=== PATIENT | male | born 1990 | race Hispanic/Latino ===

== ENCOUNTER 2016-04-19 09:30 | Emergency (ER) | payer OTHER, SELFPAY ==
--- NOTE | 2016-04-19 12:18 | EDDOCDS ---
Physician Documentation [facility] Name: Andreas Cifuentes Age: 25 yrs Sex: Male : 1990 Arrival Date: 04/19/2016 Time: 09:30 Bed BHU1 Private MD: [facility] - Pediatric[facility] Disposition: 04/19 11:28 Critical Care: Critical care not applicable. pc Disposition: 04/19/16 11:31 Discharged to Home/Self Care. Impression: Generalized anxiety disorder. - Condition is Stable. - Discharge Instructions: Generalized Anxiety Disorder. - Medication Reconciliation, Local Pharmacy Hours form. - Follow up: Referral list, As provided by PFS; When: Call to arrange an appointment; Reason: To establish care. - Problem is chronic. - Symptoms are unchanged. HPI: 11:28 This 25 yrs old Male presents to ER via Walkin/Carried/Asstd with complaints pc of Anxiety. 11:28 The history is obtained from the patient. He complains of increased anxiety. He denies pc depression, SI or HI. He is asking to talk to a counsellor. At their worst, the symptoms were mild. In the emergency department, the symptoms are unchanged. The patient has experienced similar episodes in the past, chronically. Historical: - Allergies: no known allergies; - Home Meds: 1. Lexapro 20 mg Oral tab once daily (Last dose: 04/19/2016 08:00) - PMHx: Anxiety; Depression; - PSHx: none; - The history from nurses notes was reviewed: and I agree with what is documented. - Social history: Smoking status: Patient uses tobacco products, heavy tobacco smoker. No barriers to communication noted, The patient speaks fluent Filipino. - : The pt / caregiver states he / she is not on anticoagulants. Home medication list is obtained from the patient. - Hospitalizations: : No recent hospitalization is reported. - Exposure Risk Screening:: None identified. - Immunization history:: All immunizations up-to-date. - Family history: Not pertinent. ROS: 11:28 All systems are negative except as listed. pc Exam: 11:28 General Appearance: no acute distress, alert. pc 11:28 EENT: normal eye inspection, ears, nose and throat normal, pharynx normal, mucous membranes moist 11:28 Neck: The exam reveals no acute abnormalities. ROM is normal and painless. No nuchal rigidity is noted.. 11:28 Respiratory: no respiratory distress, normal breath sounds. 11:28 CVS: regular pulse rate, regular rhythm, normal S1 and S2, no murmurs, strong peripheral pulses. 11:28 Abdomen: soft, non-tender, no organomegaly, normal bowel sounds. 11:28 Back: normal inspection. 11:28 Skin: skin color is normal, warm, dry. 11:28 Extremities: The extremities have a grossly normal appearance, are non-tender, without acute ROM abnormalities. 11:28 Neuro: oriented x 3, cranial nerves normal as tested, no motor deficits, no sensory deficits. 11:28 Psych: normal mood. Vital Signs: 09:32 BP 144 / 82; Pulse 94; Resp 16; Temp 97.3(O); Pulse Ox 100% ; Weight 58.97 kg / 130.01 cmb lbs; Height 5 ft. 1 in. (154.94 cm); Pain 0/10; 09:32 Body Mass Index 24.56 (58.97 kg, 154.94 cm) cmb MDM: 11:26 REGULAR DIET PLASTIC LOPEZ+DIET ordered. EDMS 11:28 Differential Diagnosis: anxiety. Plan: PFS eval. Data reviewed: old medical records, pc vital signs, nurses notes. Test interpretation: none. The patient has been re-examined and re-evaluated. The patient's symptoms have mildly improved after treatment. Other consultation: The ED can worker was notified and will evaluate the patient. 11:28 Disposition: The historical points, examination findings, and any diagnostic results pc supporting the provided diagnosis, were discussed with the patient or legal guardian. The need for outpatient follow up with the provider listed on their discharge instructions was discussed. They were encouraged to return to [facility], or the nearest ED, if symptoms worsen/persist, or for any other questions/concerns. 11:31 PSA Outpatient Referrals was scanned into [employer] and attached to record. rita 11:47 Financial registration complete. lg Signatures: Dispatcher [employer] EDMS Serafin Aguiar MD MD pc Sobkiewicz, Michele,ERIKA RN ms2 Osman Bernardo, PSA PSA Eddie Mc, Reg Reg lg Caitie Cramen RN RN mk4 MTDD
--- NOTE | 2016-04-19 12:18 | EDDOCDS ---
Nurse's Notes [facility] Name: Andreas Cifuentes Age: 25 yrs Sex: Male : 1990 Arrival Date: 04/19/2016 Time: 09:30 Bed [facility] Private MD: [facility] - Pediatrics Diagnosis: Generalized anxiety disorder Presentation: 04/19 09:30 Red Flag criteria, patient assessed and taken directly to a bed. 4 09:38 Presenting complaint: Patient states: pt trying to get off drugs was at [facility] this mk4 morning last week he "thought" about killing himself no plan. Mental Health Triage Level: Level 2:. Adult Sepsis Screening: The patient does not have new or worsening altered mentation. Patient's respiratory rate is less than 22. Systolic blood pressure is greater than 100. Patient has a qSOFA score of 0- Negative Sepsis Screen. Mental Health Triage Level: Level 2:. Suicide/Homicide risk assessment- The patient admits to and/or has been reported to be having suicidal ideations. Status: Patient is not a relocation services specialist or dependent. Transition of care: patient was not received from another setting of care. 09:38 Acuity: VINNY Level 3 mk4 09:38 Method Of Arrival: Walkin/Carried/Asstd mk4 Triage Assessment: 09:40 General: Appears in no apparent distress, Behavior is anxious. Pain: Denies pain. HIV mk4 screening NA for this visit Offered previously. Historical: - Allergies: no known allergies; - Home Meds: 1. Lexapro 20 mg Oral tab once daily (Last dose: 04/19/2016 08:00) - PMHx: Anxiety; Depression; - PSHx: none; - The history from nurses notes was reviewed: and I agree with what is documented. - Social history: Smoking status: Patient uses tobacco products, heavy tobacco smoker. No barriers to communication noted, The patient speaks fluent Guinean. - : The pt / caregiver states he / she is not on anticoagulants. Home medication list is obtained from the patient. - Hospitalizations: : No recent hospitalization is reported. - Exposure Risk Screening:: None identified. - Immunization history:: All immunizations up-to-date. - Family history: Not pertinent. Screenin:10 Screening information is obtained from prior medical records. Fall risk: No risks ms2 identified. Assistance ADL's: requires no assistance with activities of daily living. Abuse/DV Screen: The patient / caregiver reports he/she is: not in a situation that causes fear, pain or injury. Nutritional screening: No deficits noted. Advance Directives: Currently, there is no health care proxy. There is no active DNR order. There is no living will. There is no Power of Transition Manager. Advance directive information has not previously been placed in an [facility] medical record. Further advance directive information is declined. home support is adequate. Assessment: 12:11 General: Appears in no apparent distress, first contact with pt ---pt ready for d/c. ms2 Behavior is cooperative. Neurological: Level of Consciousness is awake, alert, obeys commands. Respiratory: Airway is patent Respiratory effort is even, unlabored, Respiratory pattern is regular, symmetrical. Derm: Skin is pink, warm & dry. Musculoskeletal: Range of motion intact in all extremities. Social Work Consult: 11:31 Social Work Note: Presented to ED looking for referrals. Pt denied SI/HI, is A&Ox3, rb calm and cooperative, uses Marijuana everyday since age 13, and recently broke up with BF (still living in the home). Pt on Lexapro (Prescribed by PCP \\T\\ [facility]) but feels it is not strong enough according to Pt. Has an apt on 05/01/16 with PCP and will discuss medication change at that time. Additional referrals given. No further interventions needed at this time. Vital Signs: 09:32 BP 144 / 82; Pulse 94; Resp 16; Temp 97.3(O); Pulse Ox 100% ; Weight 58.97 kg; Height 5 cmb ft. 1 in. (154.94 cm); Pain 0/10; 09:32 Body Mass Index 24.56 (58.97 kg, 154.94 cm) b Vitals: 09:32 Log In Time: April 19, 2016 at 09:30. b ED Course: 09:31 Patient visited by Bailey Su. cmb 09:[facility] is Private Physician. cmb 09:33 RN notified that patient meets Red Flag criteria. cmb 09:38 Patient moved to mk4 09:39 Triage Initiated mk4 09:41 Patient moved to BHU1 mk4 09:45 Patient visited by James Glass. dpm 09:50 Pt greeted and oriented to ED. Patient advised of names of staff involved in care, dpm location of call carey, wait times and NPO status. Patient has correct armband on for positive identification. Placed in psych safe attire. Security observing. Property removed, inventory done, secured in belongings bag- placed in locked locker. Placed in locker 1. Psych Safety Check: Location: Psych Room. Visual Assessment: Cooperative. 10:02 Patient visited by Jamse Glass. dpm 10:22 Patient visited by James Glass. dpm 10:46 Patient visited by James Glass. dpm 10:59 Serafin Aguiar MD is Attending Physician. pc 11:01 Patient visited by James Glass. dpm 11:16 Patient visited by James Glass. dpm 11:25 Patient visited by Serafin Aguiar MD. pc 11:31 Referral list, As provided by [facility] is Referral Physician. pc 11:31 PSA Outpatient Referrals was scanned into [employer] and attached to record. jl 11:48 Patient visited by James Glass. dpm 12:10 Patient visited by Ayaan Hoskins,ERIKA. ms2 12:13 The patient / caregiver is instructed regarding the plan of care and ED course. ms2 12:13 No IV's were initiated during this patient's visit. No procedures done that require ms2 assistance. Order Results: There are currently no results for this order. Outcome: 11:31 Discharge ordered by Provider. pc 12:14 Discharge Assessment: patient administered narcotics - no. The following High Risk ms2 Discharge criteria are identified: None. Discharged to home ambulatory, with friend. Condition: stable. Discharge instructions given to patient, Instructed on discharge instructions, follow up and referral plans. Demonstrated understanding of instructions, Pt was receptive of discharge instructions/ teaching. No special radiology studies were completed. 12:16 Patient left the ED. ms2 Signatures: Serafin Aguiar MD MD pc Sobkiewicz, Michele,ERIKA RN ms2 Robbins, Daisha, PSA PSA rb Tova, Osman, PSA PSA jl James Glass dpm Bailey Su Margaret, RN RN mk4 MTDD
--- NOTE | 2016-04-21 13:18 | EDDOCDS ---
Physician Documentation [facility] Name: Andreas Cifuentes Age: 25 yrs Sex: Male : 1990 Arrival Date: 04/19/2016 Time: 09:30 Bed BHU1 Private MD: [facility] - Pediatric[facility] Disposition: 04/19 11:28 Critical Care: Critical care not applicable. pc Disposition: 04/19/16 11:31 Discharged to Home/Self Care. Impression: Generalized anxiety disorder. - Condition is Stable. - Discharge Instructions: Generalized Anxiety Disorder. - Medication Reconciliation, Local Pharmacy Hours form. - Follow up: Referral list, As provided by PFS; When: Call to arrange an appointment; Reason: To establish care. - Problem is chronic. - Symptoms are unchanged. HPI: 11:28 This 25 yrs old Male presents to ER via Walkin/Carried/Asstd with complaints pc of Anxiety. 11:28 The history is obtained from the patient. He complains of increased anxiety. He denies pc depression, SI or HI. He is asking to talk to a counsellor. At their worst, the symptoms were mild. In the emergency department, the symptoms are unchanged. The patient has experienced similar episodes in the past, chronically. Historical: - Allergies: no known allergies; - Home Meds: 1. Lexapro 20 mg Oral tab once daily (Last dose: 04/19/2016 08:00) - PMHx: Anxiety; Depression; - PSHx: none; - The history from nurses notes was reviewed: and I agree with what is documented. - Social history: Smoking status: Patient uses tobacco products, heavy tobacco smoker. No barriers to communication noted, The patient speaks fluent Azerbaijani. - : The pt / caregiver states he / she is not on anticoagulants. Home medication list is obtained from the patient. - Hospitalizations: : No recent hospitalization is reported. - Exposure Risk Screening:: None identified. - Immunization history:: All immunizations up-to-date. - Family history: Not pertinent. ROS: 11:28 All systems are negative except as listed. pc Exam: 11:28 General Appearance: no acute distress, alert. pc 11:28 EENT: normal eye inspection, ears, nose and throat normal, pharynx normal, mucous membranes moist 11:28 Neck: The exam reveals no acute abnormalities. ROM is normal and painless. No nuchal rigidity is noted.. 11:28 Respiratory: no respiratory distress, normal breath sounds. 11:28 CVS: regular pulse rate, regular rhythm, normal S1 and S2, no murmurs, strong peripheral pulses. 11:28 Abdomen: soft, non-tender, no organomegaly, normal bowel sounds. 11:28 Back: normal inspection. 11:28 Skin: skin color is normal, warm, dry. 11:28 Extremities: The extremities have a grossly normal appearance, are non-tender, without acute ROM abnormalities. 11:28 Neuro: oriented x 3, cranial nerves normal as tested, no motor deficits, no sensory deficits. 11:28 Psych: normal mood. Vital Signs: 09:32 BP 144 / 82; Pulse 94; Resp 16; Temp 97.3(O); Pulse Ox 100% ; Weight 58.97 kg / 130.01 cmb lbs; Height 5 ft. 1 in. (154.94 cm); Pain 0/10; 09:32 Body Mass Index 24.56 (58.97 kg, 154.94 cm) cmb MDM: 11:26 REGULAR DIET PLASTIC LOPEZ+DIET ordered. EDMS 11:28 Differential Diagnosis: anxiety. Plan: PFS eval. Data reviewed: old medical records, pc vital signs, nurses notes. Test interpretation: none. The patient has been re-examined and re-evaluated. The patient's symptoms have mildly improved after treatment. Other consultation: The ED hatchery worker was notified and will evaluate the patient. 11:28 Disposition: The historical points, examination findings, and any diagnostic results pc supporting the provided diagnosis, were discussed with the patient or legal guardian. The need for outpatient follow up with the provider listed on their discharge instructions was discussed. They were encouraged to return to [facility], or the nearest ED, if symptoms worsen/persist, or for any other questions/concerns. 11:31 PSA Outpatient Referrals was scanned into [employer] and attached to record. jl 11:47 Financial registration complete. lg 12:41 [facility] Payment Agreement was scanned into [employer] and attached to record. lg Signatures: Dispatcher [employer] EDMS Serafin Aguiar MD MD pc Sobkiewicz, Michele, RN RN ms2 Osman Bernardo, PSA PSA jl Eddie Mc, Barron Reg lg Caitie Carmen RN RN mk4 The chart was reviewed and I authenticate all verbal orders and agree with the evaluation and treatment provided.Attachments: 12:41 [facility] Payment Agreement lg Chart Complete MTDD
--- NOTE | 2016-04-21 13:18 | EDDOCDS ---
Physician Documentation [facility] Name: Andreas Cifuentes Age: 25 yrs Sex: Male : 1990 Arrival Date: 04/19/2016 Time: 09:30 Bed BHU1 Private MD: [facility] - Pediatrics Disposition: 04/19 11:28 Critical Care: Critical care not applicable. pc Disposition: 04/19/16 11:31 Discharged to Home/Self Care. Impression: Generalized anxiety disorder. - Condition is Stable. - Discharge Instructions: Generalized Anxiety Disorder. - Medication Reconciliation, Local Pharmacy Hours form. - Follow up: Referral list, As provided by PFS; When: Call to arrange an appointment; Reason: To establish care. - Problem is chronic. - Symptoms are unchanged. HPI: 11:28 This 25 yrs old Male presents to ER via Walkin/Carried/Asstd with complaints pc of Anxiety. 11:28 The history is obtained from the patient. He complains of increased anxiety. He denies pc depression, SI or HI. He is asking to talk to a counsellor. At their worst, the symptoms were mild. In the emergency department, the symptoms are unchanged. The patient has experienced similar episodes in the past, chronically. Historical: - Allergies: no known allergies; - Home Meds: 1. Lexapro 20 mg Oral tab once daily (Last dose: 04/19/2016 08:00) - PMHx: Anxiety; Depression; - PSHx: none; - The history from nurses notes was reviewed: and I agree with what is documented. - Social history: Smoking status: Patient uses tobacco products, heavy tobacco smoker. No barriers to communication noted, The patient speaks fluent Mauritian. - : The pt / caregiver states he / she is not on anticoagulants. Home medication list is obtained from the patient. - Hospitalizations: : No recent hospitalization is reported. - Exposure Risk Screening:: None identified. - Immunization history:: All immunizations up-to-date. - Family history: Not pertinent. ROS: 11:28 All systems are negative except as listed. pc Exam: 11:28 General Appearance: no acute distress, alert. pc 11:28 EENT: normal eye inspection, ears, nose and throat normal, pharynx normal, mucous membranes moist 11:28 Neck: The exam reveals no acute abnormalities. ROM is normal and painless. No nuchal rigidity is noted.. 11:28 Respiratory: no respiratory distress, normal breath sounds. 11:28 CVS: regular pulse rate, regular rhythm, normal S1 and S2, no murmurs, strong peripheral pulses. 11:28 Abdomen: soft, non-tender, no organomegaly, normal bowel sounds. 11:28 Back: normal inspection. 11:28 Skin: skin color is normal, warm, dry. 11:28 Extremities: The extremities have a grossly normal appearance, are non-tender, without acute ROM abnormalities. 11:28 Neuro: oriented x 3, cranial nerves normal as tested, no motor deficits, no sensory deficits. 11:28 Psych: normal mood. Vital Signs: 09:32 BP 144 / 82; Pulse 94; Resp 16; Temp 97.3(O); Pulse Ox 100% ; Weight 58.97 kg / 130.01 cmb lbs; Height 5 ft. 1 in. (154.94 cm); Pain 0/10; 09:32 Body Mass Index 24.56 (58.97 kg, 154.94 cm) cmb MDM: 11:26 REGULAR DIET PLASTIC LOPEZ+DIET ordered. EDMS 11:28 Differential Diagnosis: anxiety. Plan: PFS eval. Data reviewed: old medical records, pc vital signs, nurses notes. Test interpretation: none. The patient has been re-examined and re-evaluated. The patient's symptoms have mildly improved after treatment. Other consultation: The ED grounds worker was notified and will evaluate the patient. 11:28 Disposition: The historical points, examination findings, and any diagnostic results pc supporting the provided diagnosis, were discussed with the patient or legal guardian. The need for outpatient follow up with the provider listed on their discharge instructions was discussed. They were encouraged to return to [facility], or the nearest ED, if symptoms worsen/persist, or for any other questions/concerns. 11:31 PSA Outpatient Referrals was scanned into [employer] and attached to record. jl 11:47 Financial registration complete. lg 12:41 [facility] Payment Agreement was scanned into [employer] and attached to record. lg Signatures: Dispatcher [employer] EDMS Serafin Aguiar MD MD pc Sobkiewicz, Michele, RN RN ms2 Osman Bernardo, PSA PSA jl Eddie Mc, Barron Reg lg Caitie Carmen RN RN mk4 The chart was reviewed and I authenticate all verbal orders and agree with the evaluation and treatment provided.Attachments: 12:41 [facility] Payment Agreement lg Chart Complete MTDD
--- NOTE | 2016-04-21 13:18 | EDDOCDS ---
Nurse's Notes [facility] Name: Andreas Cifuentes Age: 25 yrs Sex: Male : 1990 Arrival Date: 04/19/2016 Time: 09:30 Bed [facility] Private MD: [facility] Diagnosis: Generalized anxiety disorder Presentation: 04/19 09:30 Red Flag criteria, patient assessed and taken directly to a bed. 4 09:38 Presenting complaint: Patient states: pt trying to get off drugs was at [facility] this mk4 morning last week he "thought" about killing himself no plan. Mental Health Triage Level: Level 2:. Adult Sepsis Screening: The patient does not have new or worsening altered mentation. Patient's respiratory rate is less than 22. Systolic blood pressure is greater than 100. Patient has a qSOFA score of 0- Negative Sepsis Screen. Mental Health Triage Level: Level 2:. Suicide/Homicide risk assessment- The patient admits to and/or has been reported to be having suicidal ideations. Status: Patient is not a biomedical service engineer or dependent. Transition of care: patient was not received from another setting of care. 09:38 Acuity: VINNY Level 3 mk4 09:38 Method Of Arrival: Walkin/Carried/Asstd mk4 Triage Assessment: 09:40 General: Appears in no apparent distress, Behavior is anxious. Pain: Denies pain. HIV mk4 screening NA for this visit Offered previously. Historical: - Allergies: no known allergies; - Home Meds: 1. Lexapro 20 mg Oral tab once daily (Last dose: 04/19/2016 08:00) - PMHx: Anxiety; Depression; - PSHx: none; - The history from nurses notes was reviewed: and I agree with what is documented. - Social history: Smoking status: Patient uses tobacco products, heavy tobacco smoker. No barriers to communication noted, The patient speaks fluent Brazilian. - : The pt / caregiver states he / she is not on anticoagulants. Home medication list is obtained from the patient. - Hospitalizations: : No recent hospitalization is reported. - Exposure Risk Screening:: None identified. - Immunization history:: All immunizations up-to-date. - Family history: Not pertinent. Screenin:10 Screening information is obtained from prior medical records. Fall risk: No risks ms2 identified. Assistance ADL's: requires no assistance with activities of daily living. Abuse/DV Screen: The patient / caregiver reports he/she is: not in a situation that causes fear, pain or injury. Nutritional screening: No deficits noted. Advance Directives: Currently, there is no health care proxy. There is no active DNR order. There is no living will. There is no Power of Neighborhood Worker. Advance directive information has not previously been placed in an [facility] medical record. Further advance directive information is declined. home support is adequate. Assessment: 12:11 General: Appears in no apparent distress, first contact with pt ---pt ready for d/c. ms2 Behavior is cooperative. Neurological: Level of Consciousness is awake, alert, obeys commands. Respiratory: Airway is patent Respiratory effort is even, unlabored, Respiratory pattern is regular, symmetrical. Derm: Skin is pink, warm & dry. Musculoskeletal: Range of motion intact in all extremities. Social Work Consult: 11:31 Social Work Note: Presented to ED looking for referrals. Pt denied SI/HI, is A&Ox3, rb calm and cooperative, uses Marijuana everyday since age 13, and recently broke up with BF (still living in the home). Pt on Lexapro (Prescribed by PCP \\T\\ [facility]) but feels it is not strong enough according to Pt. Has an apt on 05/01/16 with PCP and will discuss medication change at that time. Additional referrals given. No further interventions needed at this time. Vital Signs: 09:32 BP 144 / 82; Pulse 94; Resp 16; Temp 97.3(O); Pulse Ox 100% ; Weight 58.97 kg; Height 5 cmb ft. 1 in. (154.94 cm); Pain 0/10; 09:32 Body Mass Index 24.56 (58.97 kg, 154.94 cm) b Vitals: 09:32 Log In Time: April 19, 2016 at 09:30. b ED Course: 09:31 Patient visited by Bailey Su. cmb 09:31 [facility] is Private Physician. cmb 09:33 RN notified that patient meets Red Flag criteria. cmb 09:38 Patient moved to mk4 09:39 Triage Initiated mk4 09:41 Patient moved to BHU1 mk4 09:45 Patient visited by James Glass. dpm 09:50 Pt greeted and oriented to ED. Patient advised of names of staff involved in care, dpm location of call carey, wait times and NPO status. Patient has correct armband on for positive identification. Placed in psych safe attire. Security observing. Property removed, inventory done, secured in belongings bag- placed in locked locker. Placed in locker 1. Psych Safety Check: Location: Psych Room. Visual Assessment: Cooperative. 10:02 Patient visited by James Glass. dpm 10:22 Patient visited by James Glass. dpm 10:46 Patient visited by James Glass. dpm 10:59 Serafin Aguiar MD is Attending Physician. pc 11:01 Patient visited by James Glass. dpm 11:16 Patient visited by James Glass. dpm 11:25 Patient visited by Serafin Aguiar MD. pc 11:31 Referral list, As provided by [facility] is Referral Physician. pc 11:31 PSA Outpatient Referrals was scanned into [employer] and attached to record. jl 11:48 Patient visited by James Glass. dpm 12:10 Patient visited by Ayaan Hoskins RN. ms2 12:13 The patient / caregiver is instructed regarding the plan of care and ED course. ms2 12:13 No IV's were initiated during this patient's visit. No procedures done that require ms2 assistance. 12:41 Patient name changed from Andreas\\S\\D\\S\\Vane\\S\\ to Andreas\\S\\Vinnie\\S\\Vane. EDMS 12:41 [facility] Payment Agreement was scanned into [employer] and attached to record. lg Order Results: There are currently no results for this order. Outcome: 11:31 Discharge ordered by Provider. pc 12:14 Discharge Assessment: patient administered narcotics - no. The following High Risk ms2 Discharge criteria are identified: None. Discharged to home ambulatory, with friend. Condition: stable. Discharge instructions given to patient, Instructed on discharge instructions, follow up and referral plans. Demonstrated understanding of instructions, Pt was receptive of discharge instructions/ teaching. No special radiology studies were completed. 12:16 Patient left the ED. ms2 Signatures: Dispatcher [employer] EDMS Serafin Aguiar MD MD pc Sobkiewicz,Ayaan,RN RN ms2 Rosendo, Daisha, PSA PSA rb Osman Bernardo, PSA PSA Eddie Lima, Barron Reg James Del Castillo dpm, Chelsea cmb King, Margaret, RN RN mk4 Chart Complete MTDD
== END 2016-04-19 12:16 | disposition home or self-care (01) ==
LOC: M ED 09:30
DX: F41.1 Generalized anxiety disorder (principal); F32.9 Major depressive disorder, single episode, unspecified; Z79.899 Other long term (current) drug therapy; F17.210 Nicotine dependence, cigarettes, uncomplicated

== ENCOUNTER 2016-08-17 23:56 | Emergency (ER) | payer OTHER, SELFPAY ==
[~2016-08-17] VITALS: Ht 154.9 cm; Wt 52.6 kg
[2016-08-18] MEDS ORDERED: VENL37.598 PO (00:28)
[2016-08-18 01:01] LABS: MEAN CORPUSCULAR HEMOGLOBIN 31.2 pg (27.0-33.0); MEAN CORPUSCULAR HGB CONC 34.2 g/dl (32.0-36.5); MEAN CORPUSCULAR VOLUME 91.2 fl (80.0-96.0); RED CELL DISTRIBUTION WIDTH 13.1 % (11.5-14.5)
[2016-08-18 01:27] LABS: METHADONE URINE NEGATIVE (NEGATIVE)
[2016-08-18 01:35] LABS: ALBUMIN 4.4 GM/DL (3.2-5.2); ALBUMIN/GLOBULIN RATIO 1.16 (1.00-1.93); ALKALINE PHOSPHATASE 114 U/L (45-117); ALT/SGPT 99 U/L (12-78); ANION GAP 7 MEQ/L (8-16); AST/SGOT 40 U/L (15-37); BILIRUBIN,DIRECT 0.3 MG/DL (0.0-0.2); BILIRUBIN,TOTAL 1.5 MG/DL (0.2-1.0); BLOOD UREA NITROGEN 13 MG/DL (7-18); CALCIUM LEVEL 8.8 MG/DL (8.5-10.1); CARBON DIOXIDE LEVEL 30 MEQ/L (21-32); CHLORIDE LEVEL 104 MEQ/L (98-107); CREATININE FOR GFR 0.89 MG/DL (0.70-1.30); GLOMERULAR FILTRATION RATE > 60.0 (>60); GLUCOSE, FASTING 87 MG/DL (70-105); POTASSIUM SERUM 4.2 MEQ/L (3.5-5.1); SODIUM LEVEL 141 MEQ/L (136-145); TOTAL PROTEIN 8.2 GM/DL (6.4-8.2)
[2016-08-18 04:14] VITALS: BP 113/75
== END 2016-08-18 04:26 | disposition home or self-care (01) ==
LOC: M ED 08-18 02:10
DX: F43.0 Acute stress reaction (principal); F41.1 Generalized anxiety disorder; F32.9 Major depressive disorder, single episode, unspecified; F17.200 Nicotine dependence, unspecified, uncomplicated; F12.10 Cannabis abuse, uncomplicated
CPT/HCPCS: 36415; 80048; 80076; 80306; 84443; 85027; 99284; G0480

== ENCOUNTER → 2016-11-14 | Outpatient (REF) | payer OTHER, MEDICAID ==
[~2016-11-14] MED LIST: VENL37.598 PO
== END ==
LOC: M LAB REF 17:02
PROVIDERS: ATTEND Family Medicine Addiction Medicine
DX: Z20.2 Contact with and (suspected) exposure to infections with a predominantly sexual mode of transmission (principal)

== ENCOUNTER → 2019-06-15 | Outpatient (REF) | payer BC | LOC: M SFHCLERA 16:50 | PROVIDERS: ATTEND Nurse Practitioner Family | DX: R50.9 Fever, unspecified (principal); R05 Cough ==